=== PATIENT | female | born 1955 | race Caucasian/White ===

== ENCOUNTER 2017-10-30 18:23 | Emergency (ER) | payer BC ==
[~2017-10-30] VITALS: Ht 154.9 cm; Wt 67.6 kg
[2017-10-30 19:05] VITALS: Ht 154.9 cm; Wt 67.6 kg
[2017-10-30 21:35] LABS: BASOPHIL % 0.5 % (0-2); PLATELET COUNT 250 x10^3mcL (130-400); RED CELL DISTRIBUTION WIDTH 14.5 % (11.5-14.5)
[2017-10-30 21:43] LABS: CARBON DIOXIDE 29.1 mmol/L (21-32); CHLORIDE SERUM 104 mmol/L (98-107); CREATININE SERUM 0.7 mg/dL (0.6-1.0); GFR1 > 60 mL/min; GLUCOSE SERUM 133 mg/dL (74-106); POTASSIUM SERUM 4.1 mmol/L (3.5-5.1); SODIUM SERUM 139 mmol/L (136-145)
[2017-10-30 21:48] LABS: ALBUMIN 4.3 g/dL (3.4-5.0); ALKALINE PHOSPHATASE 161 U/L (46-116); ALT/SGPT 44 U/L (14-59); AST/SGOT 25 U/L (15-37); BILIRUBIN TOTAL 0.4 mg/dL (0.20-1.00); TOTAL PROTEIN, SERUM 8.2 g/dL (6.4-8.2)
[2017-10-30 22:22] LABS: ERYTHROCYTE SED RATE 13 mm/hr (0-30)
[2017-10-30 23:52] VITALS: BP 124/76
== END 2017-10-30 23:52 | disposition home or self-care (01) ==
LOC: ED 18:23
PROVIDERS: Emergency Medicine
DX: R51 Headache (principal); M54.2 Cervicalgia
CPT/HCPCS: J1100; J1885; J2765; J7030